=== PATIENT | female | born 1970 | race Caucasian/White ===

== ENCOUNTER 2017-01-25 18:25 | Emergency (ER) | payer OTHER ==
[~2017-01-25] VITALS: Ht 160 cm; Wt 63.6 kg
[~2017-01-25 18:25] MED LIST: ACIDOPHILUS PO; ADVIR; ALBUTEROL0.09 MG/A1 IH; ALBUTEROL0.09 MG/A3 IH; ALBUTEROL0.83 MG/ML IH; ALEVE; ALLEGRA60 MG PO; AMBIEN10 MG PO; AMBIEN5 MG PO; AMERGE; AMITRIPTYLINE25 MG PO; AMOXICILLIN 50500 MG PO; ATARAX; BENADRYL25 M1 PO; BENADRYL25 M2; BENADRYL25 MG PO; BENTYL20 MG PO; CAMBIA; CEFTIN250 M1 PO; CEFTIN250 MG PO; CEFTIN250 MG/5 M PO; CEFTIN500 MG PO; CIPRO 500MG TA500 MG PO; CYMBALTA 60MG60 MG PO; CYMBALTA PO; DARVOCET-N-101 UDTAB PO; DOXAZOCIN; DOXEPIN; DOXEPIN PO; ESTROGEL TOP; FERROUS SU325 MG/TAB PO; FLAGYL500 MG PO; FLEXERIL; FLEXERIL10 MG PO; FLONASE NASAL S16 GM NS; HYDROXYZIN10 MG/5 M1 PO; HYDROXYZINE HCL25 MG PO; IBUPROFEN; IMITREX 6M6 MG/0.5 M SQ; IMITREX25 MG PO; IMITREX25 MG SQ; IMITREX6 MG/0.5 M SC; INDERAL; IRON; LEVAQUIN 250MG250 MG PO; LEVAQUIN 750MG750 MG PO; LORTAB 5/500 501 TAB; LORTAB 5/500 501 TAB PO; LORTAB 7.5/5001 TAB PO; LYRICA150 MG PO; MACROBID 1100 MG/CAP PO; MACRODANTIN PO; MAXALT10 MG PO; MEPERIDINE HCL50 MG PO; METRONIDAZOLE500 MG PO; MOTRIN800 MG PO; NEXIUM 20MG CAP20 MG PO; NEXIUM40 MG PO; NORCO 325 MG-51 TAB; NORCO 325 MG-51 TAB PO; OCUFLOX OPHTH DR5 ML OD; OMNICEF 300MG300 MG PO; PEPCID 20MG TAB20 MG; PEPCID 20MG TAB20 MG PO; PEPCID AC 10MG10 MG PO; PERCOCET 325 MG1 TA2 PO; PERCOCET 5/321 UDTAB PO; PHENERGAN 25 TA25 MG; PHENERGAN 25 TA25 MG PO; PHENERGAN25 MG; PHENERGAN25 MG RC; PHENERGAN25 MG/ML; PREDNISONE 20MG20 MG PO; PREDNISONE20 MG PO; PREMARIN 1.251.25 MG PO; PREVACID 30MG30 M1 PO; PREVPAC; PRILOSEC 20MG20 MG PO; PROCTOFOAM-HC 11 FOA RC; PROMETHAZINE12.5 M5 PO; PROVENTIL0.09 MG/A1 IH; PYRIDIUM 100MG100 MG PO; REGLAN 10MG10 MG/TAB PO; RELPAX20 MG PO; SEPTRA DS 8001 TAB PO; SINGULAIR10 MG PO; STADOL NASA25 MG/BOT NS; TIZANIDINE4 MG PO; TOPAKAX; TOPAMAX200 MG PO; TOPIRAMATE PO; TRAZADONE HYDR100 MG PO; TREXIMET PO; TUSS PO; ULTRAM50 MG PO; VENTOLIN0.09 MG IH; ZANAFLEX; ZANAFLEX 4MG TAB4 MG PO; ZITHROMAX Z PA250 MG PO; ZOLOFT; ZOLOFT 100MG100 MG PO; ZOLOFT100 MG PO; ZYRTEC 10MG PO; same
[2017-01-25 18:33] VITALS: TEMP 98.2
[2017-01-25] MEDS ORDERED: TOPAMAX200 MG PO (18:52)
[2017-01-25] MEDS ORDERED: BUSPAR DIVIDOSE15 MG PO (18:53)
[2017-01-25] MEDS ORDERED: PRIL40 PO (18:53)
[2017-01-25] MEDS ORDERED: INDERAL 10MG10 MG PO (18:53)
[2017-01-25 20:32] VITALS: BP 107/68; PULSE 90
== END 2017-01-25 20:56 | disposition home or self-care (01) ==
LOC: COL.ER 18:25
DX: G43.909 Migraine, unspecified, not intractable, without status migrainosus (principal)
CPT/HCPCS: J1200; J1885; J2060; J2550; J7030

== ENCOUNTER 2017-02-13 16:30 | Emergency (ER) | payer MEDICARE ==
[~2017-02-13] VITALS: Ht 160 cm; Wt 65.9 kg
[~2017-02-13 16:30] MED LIST changes: +BUSPAR DIVIDOSE15 MG PO; +INDERAL 10MG10 MG PO; +PRIL40 PO
[2017-02-13 16:39] VITALS: TEMP 99
[2017-02-13] MEDS ORDERED: ATARAX 25MG25 MG/TAB PO (18:41)
[2017-02-13 18:50] VITALS: BP 122/81; PULSE 85
== END 2017-02-13 18:57 | disposition home or self-care (01) ==
LOC: COL.ER 16:30
DX: R21 Rash and other nonspecific skin eruption (principal); T43.615A Adverse effect of caffeine, initial encounter; G43.909 Migraine, unspecified, not intractable, without status migrainosus; M79.7 Fibromyalgia
CPT/HCPCS: J1100; J1170; J1200; J1885; J2550; J7030

== ENCOUNTER → 2017-03-23 | Outpatient (CLI) | payer MEDICARE ==
[~2017-03-23] MED LIST changes: +ATARAX 25MG25 MG/TAB PO
[2017-03-23 13:25] LABS: TRICYCLIC ANTIDEPRESS URINE NEGATIVE
== END ==
LOC: COL.LAB 12:37
PROVIDERS: Family Medicine
DX: G89.29 Other chronic pain (principal)

== ENCOUNTER 2017-06-18 19:17 | Emergency (ER) | payer MEDICARE ==
[~2017-06-18] VITALS: Ht 160 cm; Wt 72.7 kg
[2017-06-18 19:18] VITALS: BP 113/75; TEMP 97.7
[2017-06-18] MEDS ORDERED: PHENERGAN 25 TA25 MG PO (19:34)
[2017-06-18] MEDS ORDERED: BENADRYL25 M2 PO (19:34)
[2017-06-18] MEDS ORDERED: MOTRIN 800800 MG/TAB PO (19:35)
[2017-06-18 23:39] VITALS: PULSE 71
== END 2017-06-18 23:39 | disposition home or self-care (01) ==
LOC: COL.ER 19:17
DX: G43.909 Migraine, unspecified, not intractable, without status migrainosus (principal); J45.909 Unspecified asthma, uncomplicated; M79.7 Fibromyalgia; Z98.51 Tubal ligation status; Z90.710 Acquired absence of both cervix and uterus
CPT/HCPCS: J1200; J1885; J2300; J2550; J7030

== ENCOUNTER 2017-08-08 12:55 | Emergency (ER) | payer MEDICARE ==
[~2017-08-08] VITALS: Ht 160 cm; Wt 70.5 kg
[~2017-08-08 12:55] MED LIST changes: +BENADRYL25 M2 PO; +MOTRIN 800800 MG/TAB PO
[2017-08-08 12:59] VITALS: BP 114/72; TEMP 98.2
[2017-08-08] MEDS ORDERED: ATARAX 10MG10 MG/TAB PO (13:37)
[2017-08-08] MEDS ORDERED: IMITREX 6M6 MG/0.5 M SQ (13:38)
[2017-08-08] MEDS ORDERED: PERCOCET 325 MG1 TA2 PO (13:39)
[2017-08-08 16:25] VITALS: PULSE 78
== END 2017-08-08 16:30 | disposition home or self-care (01) ==
LOC: COL.ER 12:55
DX: G43.909 Migraine, unspecified, not intractable, without status migrainosus (principal); M79.7 Fibromyalgia; J45.909 Unspecified asthma, uncomplicated; F43.10 Post-traumatic stress disorder, unspecified; Z90.710 Acquired absence of both cervix and uterus; Z90.49 Acquired absence of other specified parts of digestive tract
CPT/HCPCS: J0595; J1200; J1885; J2550; J7030

== ENCOUNTER → 2017-12-07 | Outpatient (CLI) | payer MEDICARE ==
[~2017-12-07] MED LIST changes: +ATARAX 10MG10 MG/TAB PO
== END ==
LOC: COL.RAD 11-30 10:30
DX: M79.7 Fibromyalgia (principal); R90.82 White matter disease, unspecified
CPT/HCPCS: A9585

== ENCOUNTER → 2018-01-24 | Outpatient (CLI) | payer MEDICARE | LOC: COL.RAD 10:22 | DX: R10.9 Unspecified abdominal pain (principal); R11.0 Nausea ==

== ENCOUNTER → 2018-04-25 | Emergency (ER) | payer MEDICARE ==
[~2018-04-25] VITALS: Wt 68.2 kg
[~2018-04-25] MED LIST changes: +AIMOVIG AU70 MG/1 ML SQ; +ATARAX50 MG PO; +BENTYL 20MG20 MG/TAB PO; +DEXILANT60 MG PO; +PAMELOR 25MG25 MG PO; +TENORMIN 2525 MG/TAB PO; +ZANAFLEX CAPSULE2 MG PO
[2018-04-25 23:00] VITALS: BP 116/74; PULSE 102; TEMP 97.8
[2018-04-26 14:36] LABS: ALBUMIN 4.3 gm/dL (3.5-5.0); BILIRUBIN,TOTAL 0.4 mg/dL (0.0-1.0); C-REACTIVE PROTEIN 0.7 mg/dL (0.0-0.9); CALCIUM 9.4 mg/dL (8.4-10.2); CREATININE, serum 0.94 mg/dL (0.52-1.25); POTASSIUM 3.9 mmol/L (3.4-5.0); TOTAL PROTEIN 8.5 gm/dL (6.4-8.2)
[2018-04-26 15:49] LABS: BASO % 0.3 % (0.0-2.0); EOS # 0.3 (0.0-0.7); EOS % 3.6 % (0-4.0); GRAN # 3.5 (1.4-6.5); GRAN % 50.3 % (42.2-75.2); HEMATOCRIT 38.6 % (37.0-47.0); HEMOGLOBIN 12.8 g/dl (12.5-16.0); LYMPH # 2.8 (1.2-3.4); LYMPH % 39.7 % (20.0-51.0); MEAN CELL VOLUME 83 fl (80.0-100.0); MEAN CORPUSCULAR HEMOGLOBIN 28 pg (27.0-31.0); MEAN CORPUSCULAR HGB CONC 33 g/dl (33.0-37.0); MEAN PLATELET VOLUME 11.1 fl (7.4-10.4); MONO # 0.4 (0.1-0.6); MONO % 5.7 % (1.7-9.3); PLATELET COUNT 140 K/mm3 (130-400); RED BLOOD COUNT 4.64 M/mm3 (4.10-5.30); REDCELL DISTRIBUTION WIDTH-CV 13.8 % (11.5-14.5)
== END ==
LOC: COL.ER 23:00
PROVIDERS: Emergency Medicine
DX: R10.13 Epigastric pain (principal); R10.11 Right upper quadrant pain; G43.909 Migraine, unspecified, not intractable, without status migrainosus; Z90.49 Acquired absence of other specified parts of digestive tract; Z90.710 Acquired absence of both cervix and uterus
CPT/HCPCS: J1170; J2550; J7030

== ENCOUNTER 2018-05-02 18:44 | Emergency (ER) | payer MEDICARE ==
[~2018-05-02] VITALS: Ht 160 cm; Wt 72.7 kg
[2018-05-02 18:49] VITALS: TEMP 97.5
[2018-05-02 20:05] LABS: BASO % 0.2 % (0.0-2.0); EOS # 0.2 (0.0-0.7); EOS % 2.7 % (0-4.0); GRAN % 47.1 % (42.2-75.2); HEMATOCRIT 37.5 % (37.0-47.0); HEMOGLOBIN 12.4 g/dl (12.5-16.0); LYMPH # 3.6 (1.2-3.4); LYMPH % 42.2 % (20.0-51.0); MEAN CELL VOLUME 83 fl (80.0-100.0); MEAN CORPUSCULAR HEMOGLOBIN 27 pg (27.0-31.0); MEAN CORPUSCULAR HGB CONC 33 g/dl (33.0-37.0); MONO # 0.6 (0.1-0.6); MONO % 7.2 % (1.7-9.3); PLATELET COUNT 238 K/mm3 (130-400); RED BLOOD COUNT 4.54 M/mm3 (4.10-5.30); REDCELL DISTRIBUTION WIDTH-CV 14.5 % (11.5-14.5)
[2018-05-02 20:16] LABS: BILIRUBIN,TOTAL 0.2 mg/dL (0.0-1.0); C-REACTIVE PROTEIN 0.6 mg/dL (0.0-0.9); CALCIUM 8.8 mg/dL (8.4-10.2); CREATININE, serum 0.98 mg/dL (0.52-1.25); POTASSIUM 3.9 mmol/L (3.4-5.0); TOTAL PROTEIN 7.7 gm/dL (6.4-8.2)
[2018-05-02 20:49] LABS: COLLECTION METHOD CLEAN CATCH
[2018-05-02 21:01] LABS: PH 7 (5-8); SQUAMOUS EPITHELIAL 0-2 /hpf; URINE APPEARANCE Clear; URINE BACTERIA None Seen /hpf; URINE BILIRUBIN Negative (NEGATIVE); URINE BLOOD Negative (NEGATIVE); URINE COLOR Straw; URINE GLUCOSE Negative (NEGATIVE); URINE KETONE Negative (NEGATIVE); URINE LEUKOCYTE ESTERASE Trace (NEGATIVE); URINE NITRATE Negative (NEGATIVE); URINE PROTEIN(semi-quant) Negative (NEGATIVE); URINE RBC 0-2 /hpf; URINE UROBILINOGEN Negative (NEGATIVE)
[2018-05-02 22:29] VITALS: BP 91/68; PULSE 98
== END 2018-05-02 22:29 | disposition home or self-care (01) ==
LOC: COL.ER 18:44
PROVIDERS: Emergency Medicine
DX: R10.11 Right upper quadrant pain (principal); G89.29 Other chronic pain; G43.909 Migraine, unspecified, not intractable, without status migrainosus; M79.7 Fibromyalgia; Z90.49 Acquired absence of other specified parts of digestive tract; Z90.710 Acquired absence of both cervix and uterus; Z88.8 Allergy status to other drugs, medicaments and biological substances
CPT/HCPCS: J1200; J1630; J2270; J2550; J7030; Q9967

== ENCOUNTER 2018-06-19 12:45 | Emergency (ER) | payer MEDICARE ==
[~2018-06-19] VITALS: Ht 160 cm; Wt 72.7 kg
[2018-06-19 13:02] VITALS: TEMP 97.8
[2018-06-19 15:05] LABS: COLLECTION METHOD CLEAN CATCH
[2018-06-19 15:11] LABS: BASO % 0.3 % (0.0-2.0); EOS # 0.2 (0.0-0.7); EOS % 2.8 % (0-4.0); GRAN # 3.8 (1.4-6.5); GRAN % 52.8 % (42.2-75.2); HEMATOCRIT 38.7 % (37.0-47.0); HEMOGLOBIN 12.7 g/dl (12.5-16.0); LYMPH # 2.8 (1.2-3.4); LYMPH % 38.5 % (20.0-51.0); MEAN CELL VOLUME 84 fl (80.0-100.0); MEAN CORPUSCULAR HEMOGLOBIN 28 pg (27.0-31.0); MEAN CORPUSCULAR HGB CONC 33 g/dl (33.0-37.0); MONO # 0.4 (0.1-0.6); MONO % 4.9 % (1.7-9.3); PLATELET COUNT 255 K/mm3 (130-400); RED BLOOD COUNT 4.62 M/mm3 (4.10-5.30); REDCELL DISTRIBUTION WIDTH-CV 14.1 % (11.5-14.5)
[2018-06-19 15:13] LABS: PH 6 (5-8); SQUAMOUS EPITHELIAL 0-2 /hpf; URINE APPEARANCE Clear; URINE BACTERIA Rare /hpf; URINE BILIRUBIN Negative (NEGATIVE); URINE BLOOD Negative (NEGATIVE); URINE COLOR Straw; URINE GLUCOSE Negative (NEGATIVE); URINE KETONE Negative (NEGATIVE); URINE LEUKOCYTE ESTERASE 2+ (NEGATIVE); URINE NITRATE Negative (NEGATIVE); URINE PROTEIN(semi-quant) Negative (NEGATIVE); URINE RBC 0-2 /hpf; URINE UROBILINOGEN Negative (NEGATIVE)
[2018-06-19 15:21] LABS: ALANINE AMINOTRANSFERASE < 6 U/L (9-52); ALBUMIN 4.3 gm/dL (3.5-5.0); ALKALINE PHOSPHATASE 152 U/L (50-136); ANION GAP 7 mmol/L (7-16); AST,SGOT 18 U/L (15-37); BILIRUBIN,TOTAL 0.3 mg/dL (0.0-1.0); BLOOD UREA NITROGEN 15 mg/dL (7-17); C-REACTIVE PROTEIN 0.6 mg/dL (0.0-0.9); CALCIUM 9.5 mg/dL (8.4-10.2); CARBON DIOXIDE 23 mmol/L (22-30); CHLORIDE 112 mmol/L (98-107); CREATININE, serum 1.02 (0.52-1.25); GLUCOSE 85 mg/dL (74-106); LIPASE 97 U/L (23-300); POTASSIUM 4.1 mmol/L (3.4-5.0); SODIUM 141 mmol/L (137-145); TOTAL PROTEIN 8.4 gm/dL (6.4-8.2)
[2018-06-19 15:35] LABS: TROPONIN-I < 0.012 ng/mL (0.000-0.035)
[2018-06-19 17:58] VITALS: BP 114/82; PULSE 87
== END 2018-06-19 18:09 | disposition home or self-care (01) ==
LOC: COL.ER 12:45
PROVIDERS: Nurse Practitioner
DX: R07.89 Other chest pain (principal); R10.10 Upper abdominal pain, unspecified; J45.909 Unspecified asthma, uncomplicated; M79.7 Fibromyalgia; F43.10 Post-traumatic stress disorder, unspecified; G43.909 Migraine, unspecified, not intractable, without status migrainosus; Z90.89 Acquired absence of other organs; Z90.49 Acquired absence of other specified parts of digestive tract; Z90.710 Acquired absence of both cervix and uterus
CPT/HCPCS: J1170; J1200; J2300; J2550; J7030

== ENCOUNTER 2018-07-05 17:12 | Emergency (ER) | payer MEDICARE ==
[~2018-07-05] VITALS: Ht 160 cm; Wt 72.7 kg
[2018-07-05 17:13] VITALS: TEMP 98.1
[2018-07-05 19:08] LABS: BASO % 0.4 % (0.0-2.0); EOS # 0.3 (0.0-0.7); EOS % 3.4 % (0-4.0); GRAN # 3.6 (1.4-6.5); GRAN % 44.7 % (42.2-75.2); HEMATOCRIT 37.2 % (37.0-47.0); HEMOGLOBIN 12.3 g/dl (12.5-16.0); LYMPH # 3.6 (1.2-3.4); LYMPH % 44.8 % (20.0-51.0); MEAN CELL VOLUME 84 fl (80.0-100.0); MEAN CORPUSCULAR HEMOGLOBIN 28 pg (27.0-31.0); MEAN CORPUSCULAR HGB CONC 33 g/dl (33.0-37.0); MEAN PLATELET VOLUME 10.5 fl (7.4-10.4); MONO # 0.5 (0.1-0.6); MONO % 6.2 % (1.7-9.3); PLATELET COUNT 191 K/mm3 (130-400); RED BLOOD COUNT 4.44 M/mm3 (4.10-5.30); REDCELL DISTRIBUTION WIDTH-CV 14.1 % (11.5-14.5)
[2018-07-05 19:27] LABS: ALANINE AMINOTRANSFERASE 14 U/L (9-52); ALBUMIN 3.9 gm/dL (3.5-5.0); ALKALINE PHOSPHATASE 147 U/L (50-136); ANION GAP 11 mmol/L (7-16); AST,SGOT 16 U/L (15-37); BILIRUBIN,TOTAL 0.1 mg/dL (0.0-1.0); BLOOD UREA NITROGEN 16 mg/dL (7-17); CALCIUM 9.3 mg/dL (8.4-10.2); CARBON DIOXIDE 23 mmol/L (22-30); CHLORIDE 110 mmol/L (98-107); CREATININE, serum 0.97 (0.52-1.25); GLUCOSE 84 mg/dL (74-106); LIPASE 176 U/L (23-300); POTASSIUM 3.7 mmol/L (3.4-5.0); SODIUM 144 mmol/L (137-145); TOTAL PROTEIN 7.4 gm/dL (6.4-8.2)
[2018-07-05 19:38] LABS: TROPONIN-I < 0.012 ng/mL (0.000-0.035)
[2018-07-05 22:23] VITALS: BP 101/76; PULSE 88
== END 2018-07-05 22:25 | disposition home or self-care (01) ==
LOC: COL.ER 17:12
PROVIDERS: Emergency Medicine
DX: S46.912A Strain of unspecified muscle, fascia and tendon at shoulder and upper arm level, left arm, initial encounter (principal); G43.909 Migraine, unspecified, not intractable, without status migrainosus; R07.89 Other chest pain; G89.29 Other chronic pain; R10.9 Unspecified abdominal pain; K58.9 Irritable bowel syndrome, unspecified; M79.7 Fibromyalgia; Z90.49 Acquired absence of other specified parts of digestive tract; X58.XXXA Exposure to other specified factors, initial encounter
CPT/HCPCS: J1200; J1885; J2300; J2550; J7030

== ENCOUNTER 2018-07-29 16:04 | Emergency (ER) | payer MEDICARE ==
[~2018-07-29] VITALS: Ht 160 cm; Wt 73.6 kg
[2018-07-29 16:48] VITALS: TEMP 98.1
[2018-07-29 17:37] LABS: BASO % 0.4 % (0.0-2.0); EOS # 0.3 (0.0-0.7); EOS % 3.8 % (0-4.0); GRAN # 3.7 (1.4-6.5); GRAN % 49.1 % (42.2-75.2); HEMATOCRIT 37.5 % (37.0-47.0); HEMOGLOBIN 12.4 g/dl (12.5-16.0); LYMPH # 2.9 (1.2-3.4); LYMPH % 39.5 % (20.0-51.0); MEAN CELL VOLUME 83 fl (80.0-100.0); MEAN CORPUSCULAR HEMOGLOBIN 27 pg (27.0-31.0); MEAN CORPUSCULAR HGB CONC 33 g/dl (33.0-37.0); MEAN PLATELET VOLUME 10.1 fl (7.4-10.4); MONO # 0.5 (0.1-0.6); MONO % 6.7 % (1.7-9.3); PLATELET COUNT 255 K/mm3 (130-400); RED BLOOD COUNT 4.54 M/mm3 (4.10-5.30); REDCELL DISTRIBUTION WIDTH-CV 13.4 % (11.5-14.5)
[2018-07-29 17:40] LABS: ALANINE AMINOTRANSFERASE < 6 U/L (9-52); ALKALINE PHOSPHATASE 133 U/L (50-136); ANION GAP 12 mmol/L (7-16); AST,SGOT 17 U/L (15-37); BILIRUBIN,TOTAL 0.3 mg/dL (0.0-1.0); BLOOD UREA NITROGEN 14 mg/dL (7-17); C-REACTIVE PROTEIN 0.8 mg/dL (0.0-0.9); CALCIUM 9.6 mg/dL (8.4-10.2); CARBON DIOXIDE 21 mmol/L (22-30); CHLORIDE 110 mmol/L (98-107); CREATININE, serum 1.02 (0.52-1.25); GLUCOSE 96 mg/dL (74-106); LIPASE 180 U/L (23-300); POTASSIUM 3.5 mmol/L (3.4-5.0); SODIUM 143 mmol/L (137-145); TOTAL PROTEIN 7.8 gm/dL (6.4-8.2)
[2018-07-29] MEDS ORDERED: FLONASE NASAL S16 GM NS (17:40)
[2018-07-29] MEDS ORDERED: BENTYL 20MG20 MG/TAB PO (17:40)
[2018-07-29] MEDS ORDERED: BUSPAR 30MG30 MG/TAB PO (17:40)
[2018-07-29] MEDS ORDERED: PHENERGAN 25 TA25 MG PO (17:43)
[2018-07-29 18:00] LABS: TROPONIN-I < 0.012 ng/mL (0.000-0.035)
[2018-07-29 18:53] VITALS: BP 103/82; PULSE 82
== END 2018-07-29 18:54 | disposition home or self-care (01) ==
LOC: COL.ER 16:04
PROVIDERS: Emergency Medicine
DX: R07.89 Other chest pain (principal); I10 Essential (primary) hypertension; M79.7 Fibromyalgia; F41.9 Anxiety disorder, unspecified; F32.9 Major depressive disorder, single episode, unspecified; G43.909 Migraine, unspecified, not intractable, without status migrainosus
CPT/HCPCS: J2550; J3010

== ENCOUNTER 2018-09-09 16:30 | Emergency (ER) | payer MEDICARE ==
[~2018-09-09] VITALS: Ht 160 cm; Wt 75.0 kg
[~2018-09-09 16:30] MED LIST changes: +BUSPAR 30MG30 MG/TAB PO
[2018-09-09 16:46] VITALS: TEMP 98.6
[2018-09-09 22:06] VITALS: BP 109/80; PULSE 97
== END 2018-09-09 22:06 | disposition home or self-care (01) ==
LOC: COL.ER 16:30
DX: G43.909 Migraine, unspecified, not intractable, without status migrainosus (principal); J45.909 Unspecified asthma, uncomplicated; M79.7 Fibromyalgia; Z90.710 Acquired absence of both cervix and uterus; Z79.51 Long term (current) use of inhaled steroids
CPT/HCPCS: J0595; J1100; J1170; J1200; J2550; J3010; J7030

== ENCOUNTER 2018-12-14 12:46 | Emergency (ER) | payer MEDICARE ==
[~2018-12-14] VITALS: Ht 160 cm; Wt 74.1 kg
[2018-12-14 12:53] VITALS: TEMP 98.3
[2018-12-14 13:38] LABS: BASO % 0.5 % (0.0-2.0); EOS # 0.2 (0.0-0.7); EOS % 3.2 % (0-4.0); GRAN # 3.1 (1.4-6.5); GRAN % 46.5 % (42.2-75.2); HEMATOCRIT 39.2 % (37.0-47.0); HEMOGLOBIN 12.7 g/dl (12.5-16.0); LYMPH # 2.9 (1.2-3.4); LYMPH % 43.5 % (20.0-51.0); MEAN CELL VOLUME 84 fl (80.0-100.0); MEAN CORPUSCULAR HEMOGLOBIN 27 pg (27.0-31.0); MEAN CORPUSCULAR HGB CONC 32 g/dl (33.0-37.0); MEAN PLATELET VOLUME 10.2 fl (7.4-10.4); MONO # 0.4 (0.1-0.6); MONO % 5.8 % (1.7-9.3); PLATELET COUNT 257 K/mm3 (130-400); RED BLOOD COUNT 4.69 M/mm3 (4.10-5.30); REDCELL DISTRIBUTION WIDTH-CV 14.6 % (11.5-14.5)
[2018-12-14 13:52] LABS: ALBUMIN 4.3 gm/dL (3.5-5.0); BILIRUBIN,TOTAL 0.2 mg/dL (0.0-1.0); C-REACTIVE PROTEIN 0.7 mg/dL (0.0-0.9); CALCIUM 9.5 mg/dL (8.4-10.2); CREATININE, serum 1.08 (0.52-1.25); POTASSIUM 4.1 mmol/L (3.4-5.0); TOTAL PROTEIN 8.1 gm/dL (6.4-8.2)
[2018-12-14 15:53] LABS: COLLECTION METHOD CLEAN CATCH
[2018-12-14 16:21] LABS: MUCOUS Present /lpf; PH 5 (5-8); SQUAMOUS EPITHELIAL 0-2 /hpf; URINE APPEARANCE Clear; URINE BACTERIA Rare /hpf; URINE BILIRUBIN Negative (NEGATIVE); URINE BLOOD Negative (NEGATIVE); URINE COLOR Yellow; URINE GLUCOSE Negative (NEGATIVE); URINE KETONE Negative (NEGATIVE); URINE LEUKOCYTE ESTERASE Negative (NEGATIVE); URINE NITRATE Negative (NEGATIVE); URINE PROTEIN(semi-quant) Negative (NEGATIVE); URINE RBC 0-2 /hpf; URINE UROBILINOGEN Negative (NEGATIVE)
[2018-12-14 17:30] VITALS: BP 109/82; PULSE 76
== END 2018-12-14 17:33 | disposition home or self-care (01) ==
LOC: COL.ER 12:46
PROVIDERS: Family Medicine
DX: G40.909 Epilepsy, unspecified, not intractable, without status epilepticus (principal); R10.11 Right upper quadrant pain; Z90.89 Acquired absence of other organs; Z79.51 Long term (current) use of inhaled steroids
CPT/HCPCS: J0595; J1200; J1630; J1885; J2550; J7030

== ENCOUNTER 2019-01-05 15:22 | Emergency (ER) | payer MEDICARE ==
[~2019-01-05] VITALS: Ht 160 cm; Wt 72.7 kg
[2019-01-05 15:45] VITALS: BP 106/71; TEMP 97.7
[2019-01-05 19:32] VITALS: PULSE 99
== END 2019-01-05 19:32 | disposition home or self-care (01) ==
LOC: COL.ER 15:22
DX: G43.909 Migraine, unspecified, not intractable, without status migrainosus (principal); M79.7 Fibromyalgia; Z79.51 Long term (current) use of inhaled steroids
CPT/HCPCS: J0595; J1200; J1630; J1885; J2550; J7030

== ENCOUNTER 2019-02-10 17:37 | Emergency (ER) | payer MEDICARE ==
[~2019-02-10] VITALS: Ht 160 cm; Wt 72.7 kg
[2019-02-10 17:53] VITALS: BP 112/72; TEMP 99.7
[2019-02-10 23:23] LABS: BASO % 0.3 % (0.0-2.0); EOS # 0.2 (0.0-0.7); EOS % 2.4 % (0-4.0); GRAN % 51.9 % (42.2-75.2); HEMATOCRIT 37.6 % (37.0-47.0); HEMOGLOBIN 12.3 g/dl (12.5-16.0); LYMPH # 3.8 (1.2-3.4); LYMPH % 39.1 % (20.0-51.0); MEAN CELL VOLUME 82 fl (80.0-100.0); MEAN CORPUSCULAR HEMOGLOBIN 27 pg (27.0-31.0); MEAN CORPUSCULAR HGB CONC 33 g/dl (33.0-37.0); MEAN PLATELET VOLUME 9.7 fl (7.4-10.4); MONO # 0.5 (0.1-0.6); MONO % 5.6 % (1.7-9.3); PLATELET COUNT 252 K/mm3 (130-400); RED BLOOD COUNT 4.58 M/mm3 (4.10-5.30); REDCELL DISTRIBUTION WIDTH-CV 14.6 % (11.5-14.5)
[2019-02-10 23:36] LABS: BILIRUBIN,TOTAL 0.1 mg/dL (0.0-1.0); C-REACTIVE PROTEIN 2.3 mg/dL (0.0-0.9); CALCIUM 9.1 mg/dL (8.4-10.2); CREATININE, serum 0.98 (0.52-1.25); POTASSIUM 3.4 mmol/L (3.4-5.0)
[2019-02-10 23:48] LABS: COLLECTION METHOD CLEAN CATCH
[2019-02-10 23:54] LABS: PH 6 (5-8); SQUAMOUS EPITHELIAL 0-2 /hpf; URINE APPEARANCE Clear; URINE BACTERIA None Seen /hpf; URINE BILIRUBIN Negative (NEGATIVE); URINE BLOOD Negative (NEGATIVE); URINE COLOR Straw; URINE GLUCOSE Negative (NEGATIVE); URINE KETONE Negative (NEGATIVE); URINE LEUKOCYTE ESTERASE Trace (NEGATIVE); URINE NITRATE Negative (NEGATIVE); URINE PROTEIN(semi-quant) Negative (NEGATIVE); URINE RBC 0-2 /hpf; URINE UROBILINOGEN Negative (NEGATIVE)
[2019-02-11 00:22] LABS: STREP SCREEN NEGATIVE
[2019-02-11 02:35] VITALS: PULSE 101
== END 2019-02-11 02:35 | disposition home or self-care (01) ==
LOC: COL.ER 17:37
PROVIDERS: Physician Assistant
DX: R51 Headache (principal); R10.9 Unspecified abdominal pain; R53.81 Other malaise; J45.909 Unspecified asthma, uncomplicated; M79.7 Fibromyalgia; Z87.19 Personal history of other diseases of the digestive system; Z79.51 Long term (current) use of inhaled steroids
CPT/HCPCS: J1170; J1200; J1885; J2270; J2550; Q9967

== ENCOUNTER 2019-03-04 13:46 | Emergency (ER) | payer MEDICARE ==
[~2019-03-04] VITALS: Ht 160 cm; Wt 74.1 kg
[2019-03-04 13:51] VITALS: TEMP 97.6
[2019-03-04] MEDS ORDERED: OMNICEF 300MG300 MG PO (15:23)
[2019-03-04 15:44] VITALS: BP 105/70; PULSE 87
== END 2019-03-04 15:53 | disposition home or self-care (01) ==
LOC: COL.ER 13:46
DX: J01.90 Acute sinusitis, unspecified (principal); G43.909 Migraine, unspecified, not intractable, without status migrainosus; J45.909 Unspecified asthma, uncomplicated; M79.7 Fibromyalgia; Z79.51 Long term (current) use of inhaled steroids
CPT/HCPCS: J0595; J1200; J1630; J1885; J2550; J7030

== ENCOUNTER 2019-04-15 15:53 | Emergency (ER) | payer MEDICARE ==
[~2019-04-15] VITALS: Ht 160 cm; Wt 72.7 kg
[2019-04-15] MEDS ORDERED: PREDNISONE20 MG PO (19:39)
[2019-04-15 19:55] VITALS: BP 101/69; PULSE 89; TEMP 98.4
== END 2019-04-15 19:55 | disposition home or self-care (01) ==
LOC: COL.ER 15:53
DX: G43.909 Migraine, unspecified, not intractable, without status migrainosus (principal); J10.1 Influenza due to other identified influenza virus with other respiratory manifestations; F43.10 Post-traumatic stress disorder, unspecified; J45.901 Unspecified asthma with (acute) exacerbation; Z98.51 Tubal ligation status; Z79.51 Long term (current) use of inhaled steroids
CPT/HCPCS: J0595; J1200; J1885; J2550; J7030

== ENCOUNTER → 2019-07-08 | Outpatient (CLI) | payer MEDICARE | LOC: COL.RAD 08:28 | DX: N20.0 Calculus of kidney (principal) ==

== ENCOUNTER 2019-11-12 13:56 | Emergency (ER) | payer MEDICARE, MEDICAID ==
[~2019-11-12] VITALS: Ht 160 cm; Wt 72.7 kg
[2019-11-12 14:06] VITALS: TEMP 98.2
[2019-11-12 16:36] VITALS: BP 107/77; PULSE 83
== END 2019-11-12 16:51 | disposition home or self-care (01) ==
LOC: COL.ER 13:56
DX: G43.909 Migraine, unspecified, not intractable, without status migrainosus (principal); J45.909 Unspecified asthma, uncomplicated; M79.7 Fibromyalgia; Z90.49 Acquired absence of other specified parts of digestive tract; Z79.51 Long term (current) use of inhaled steroids; Z79.52 Long term (current) use of systemic steroids
CPT/HCPCS: J1170; J1200; J1630; J1885; J2550; J7030

== ENCOUNTER 2019-11-20 11:51 | Emergency (ER) | payer MEDICARE, MEDICAID ==
[~2019-11-20] VITALS: Ht 160 cm; Wt 72.7 kg
[2019-11-20 12:02] VITALS: TEMP 97.8
[2019-11-20] MEDS ORDERED: PREDNISONE20 MG PO (15:09)
[2019-11-20] MEDS ORDERED: NORCO 325 MG-51 TAB PO (15:09)
[2019-11-20 15:10] VITALS: BP 118/68; PULSE 76
== END 2019-11-20 15:10 | disposition home or self-care (01) ==
LOC: COL.ER 11:51
DX: G43.909 Migraine, unspecified, not intractable, without status migrainosus (principal); Z90.49 Acquired absence of other specified parts of digestive tract
CPT/HCPCS: J0595; J1170; J1200; J2550

== ENCOUNTER 2020-05-16 19:50 | Emergency (ER) | payer MEDICARE, MEDICAID ==
[~2020-05-16] VITALS: Ht 160 cm; Wt 72.7 kg
[2020-05-16 20:05] VITALS: TEMP 97.3
[2020-05-16 20:44] LABS: ALANINE AMINOTRANSFERASE 11 U/L (4-34); ALBUMIN 4.3 gm/dL (3.5-5.0); ALKALINE PHOSPHATASE 126 U/L (50-136); ANION GAP 13 mmol/L (7-16); AST,SGOT 22 U/L (15-37); BILIRUBIN,TOTAL < 0.1 mg/dL (0.0-1.0); BLOOD UREA NITROGEN 16 mg/dL (7-17); C-REACTIVE PROTEIN 1.8 mg/dL (0.0-0.9); CALCIUM 9.4 mg/dL (8.4-10.2); CARBON DIOXIDE 20 mmol/L (22-30); CHLORIDE 107 mmol/L (98-107); GLUCOSE 92 mg/dL (74-106); LIPASE 134 U/L (23-300); POTASSIUM 3.6 mmol/L (3.4-5.0); SODIUM 141 mmol/L (137-145); TOTAL PROTEIN 8.8 gm/dL (6.4-8.2)
[2020-05-16 20:45] LABS: BASO % 0.3 % (0.0-2.0); EOS # 0.2 (0.0-0.7); EOS % 2.1 % (0-4.0); GRAN # 3.8 (1.4-6.5); GRAN % 50.5 % (42.2-75.2); HEMATOCRIT 39.9 % (37.0-47.0); HEMOGLOBIN 12.9 g/dl (12.5-16.0); LYMPH % 39.9 % (20.0-51.0); MEAN CELL VOLUME 83 fl (80.0-100.0); MEAN CORPUSCULAR HEMOGLOBIN 27 pg (27.0-31.0); MEAN CORPUSCULAR HGB CONC 32 g/dl (33.0-37.0); MEAN PLATELET VOLUME 10.3 fl (7.4-10.4); MONO # 0.5 (0.1-0.6); MONO % 6.3 % (1.7-9.3); PLATELET COUNT 251 K/mm3 (130-400); RED BLOOD COUNT 4.79 M/mm3 (4.10-5.30); REDCELL DISTRIBUTION WIDTH-CV 14.6 % (11.5-14.5)
[2020-05-16 20:56] LABS: COLLECTION METHOD CLEAN CATCH
[2020-05-16 21:12] LABS: MUCOUS Present /lpf; PH 6 (5-8); SQUAMOUS EPITHELIAL 0-2 /hpf; URINE APPEARANCE Clear; URINE BACTERIA None Seen /hpf; URINE BILIRUBIN Negative (NEGATIVE); URINE BLOOD Negative (NEGATIVE); URINE COLOR Yellow; URINE GLUCOSE Negative (NEGATIVE); URINE KETONE Negative (NEGATIVE); URINE LEUKOCYTE ESTERASE Negative (NEGATIVE); URINE NITRATE Negative (NEGATIVE); URINE PROTEIN(semi-quant) Negative (NEGATIVE); URINE RBC 0-2 /hpf; URINE UROBILINOGEN Negative (NEGATIVE)
[2020-05-16 22:46] VITALS: BP 130/80; PULSE 98
== END 2020-05-16 23:05 | disposition home or self-care (01) ==
LOC: COL.ER 19:50
PROVIDERS: Nurse Practitioner Primary Care
DX: R51.9 Headache, unspecified (principal); R10.13 Epigastric pain; K21.9 Gastro-esophageal reflux disease without esophagitis; J45.909 Unspecified asthma, uncomplicated; M79.7 Fibromyalgia; Z88.8 Allergy status to other drugs, medicaments and biological substances; Z79.51 Long term (current) use of inhaled steroids; Z87.19 Personal history of other diseases of the digestive system
CPT/HCPCS: J0595; J1200; J1885; J2550; J7030; Q9967

== ENCOUNTER 2020-06-04 17:23 | Emergency (ER) | payer MEDICARE, MEDICAID ==
[~2020-06-04] VITALS: Ht 160 cm; Wt 72.7 kg
[2020-06-04 17:58] VITALS: BP 129/94; TEMP 97
[2020-06-04 18:42] LABS: COLLECTION METHOD CLEAN CATCH
[2020-06-04 18:47] LABS: BASO % 0.4 % (0.0-2.0); EOS # 0.1 (0.0-0.7); EOS % 1.4 % (0-4.0); GRAN # 3.9 (1.4-6.5); GRAN % 49.4 % (42.2-75.2); HEMATOCRIT 38.4 % (37.0-47.0); HEMOGLOBIN 12.3 g/dl (12.5-16.0); LYMPH # 3.3 (1.2-3.4); LYMPH % 41.5 % (20.0-51.0); MEAN CELL VOLUME 83 fl (80.0-100.0); MEAN CORPUSCULAR HEMOGLOBIN 27 pg (27.0-31.0); MEAN CORPUSCULAR HGB CONC 32 g/dl (33.0-37.0); MONO # 0.5 (0.1-0.6); MONO % 6.8 % (1.7-9.3); PLATELET COUNT 260 K/mm3 (130-400); RED BLOOD COUNT 4.61 M/mm3 (4.10-5.30); REDCELL DISTRIBUTION WIDTH-CV 14.9 % (11.5-14.5)
[2020-06-04 19:04] LABS: PH 6 (5-8); SQUAMOUS EPITHELIAL 0-2 /hpf; URINE APPEARANCE Clear; URINE BACTERIA None Seen /hpf; URINE BILIRUBIN Negative (NEGATIVE); URINE BLOOD Negative (NEGATIVE); URINE COLOR Straw; URINE GLUCOSE Negative (NEGATIVE); URINE KETONE Negative (NEGATIVE); URINE LEUKOCYTE ESTERASE 1+ (NEGATIVE); URINE NITRATE Negative (NEGATIVE); URINE PROTEIN(semi-quant) Negative (NEGATIVE); URINE RBC 0-2 /hpf; URINE UROBILINOGEN Negative (NEGATIVE)
[2020-06-04 19:08] LABS: ALANINE AMINOTRANSFERASE 14 U/L (4-34); ALBUMIN 4.2 gm/dL (3.5-5.0); ALKALINE PHOSPHATASE 162 U/L (50-136); ANION GAP 11 mmol/L (7-16); AST,SGOT 24 U/L (15-37); BILIRUBIN,TOTAL < 0.1 mg/dL (0.0-1.0); BLOOD UREA NITROGEN 20 mg/dL (7-17); CARBON DIOXIDE 19 mmol/L (22-30); CHLORIDE 110 mmol/L (98-107); CREATININE, serum 0.96 (0.52-1.25); GLUCOSE 90 mg/dL (74-106); LIPASE 218 U/L (23-300); POTASSIUM 3.6 mmol/L (3.4-5.0); SODIUM 140 mmol/L (137-145); TOTAL PROTEIN 8.2 gm/dL (6.4-8.2)
[2020-06-04 19:14] LABS: C-REACTIVE PROTEIN < 0.5 mg/dL (0.0-0.9)
[2020-06-04] MEDS ORDERED: CARAFATE 1GM1 G PO (19:54)
[2020-06-04 20:27] VITALS: PULSE 96
== END 2020-06-04 20:32 | disposition home or self-care (01) ==
LOC: COL.ER 17:23
PROVIDERS: Nurse Practitioner
DX: R10.13 Epigastric pain (principal); R11.0 Nausea; R30.0 Dysuria; R51.9 Headache, unspecified; J45.909 Unspecified asthma, uncomplicated; Z90.710 Acquired absence of both cervix and uterus; Z88.8 Allergy status to other drugs, medicaments and biological substances; Z86.69 Personal history of other diseases of the nervous system and sense organs; Z79.52 Long term (current) use of systemic steroids
CPT/HCPCS: J0595; J1200; J2550; J7030

== ENCOUNTER 2020-06-17 16:28 | Emergency (ER) | payer MEDICARE, MEDICAID ==
[~2020-06-17 16:28] MED LIST changes: +CARAFATE 1GM1 G PO
[2020-06-17 16:40] VITALS: BP 117/79; PULSE 99; TEMP 98.6
[2020-06-17 17:48] LABS: BASO % 0.4 % (0.0-2.0); EOS # 0.1 (0.0-0.7); EOS % 2.1 % (0-4.0); GRAN # 3.1 (1.4-6.5); HEMATOCRIT 38.8 % (37.0-47.0); HEMOGLOBIN 12.5 g/dl (12.5-16.0); MEAN CELL VOLUME 85 fl (80.0-100.0); MEAN CORPUSCULAR HEMOGLOBIN 27 pg (27.0-31.0); MEAN CORPUSCULAR HGB CONC 32 g/dl (33.0-37.0); MEAN PLATELET VOLUME 10.4 fl (7.4-10.4); MONO # 0.5 (0.1-0.6); MONO % 6.8 % (1.7-9.3); PLATELET COUNT 241 K/mm3 (130-400); RED BLOOD COUNT 4.59 M/mm3 (4.10-5.30); REDCELL DISTRIBUTION WIDTH-CV 14.7 % (11.5-14.5)
[2020-06-17 17:57] LABS: ALANINE AMINOTRANSFERASE 11 U/L (4-34); ALBUMIN 3.8 gm/dL (3.5-5.0); ALKALINE PHOSPHATASE 143 U/L (50-136); ANION GAP 7 mmol/L (7-16); AST,SGOT 16 U/L (15-37); BILIRUBIN,TOTAL < 0.1 mg/dL (0.0-1.0); BLOOD UREA NITROGEN 14 mg/dL (7-17); CARBON DIOXIDE 24 mmol/L (22-30); CHLORIDE 110 mmol/L (98-107); CREATININE, serum 1.06 (0.52-1.25); GLUCOSE 95 mg/dL (74-106); POTASSIUM 3.6 mmol/L (3.4-5.0); SODIUM 140 mmol/L (137-145); TOTAL PROTEIN 7.5 gm/dL (6.4-8.2)
== END 2020-06-17 19:00 | disposition home or self-care (01) ==
LOC: COL.ER 16:28
PROVIDERS: Physician Assistant
DX: R51.9 Headache, unspecified (principal); R10.13 Epigastric pain; G89.29 Other chronic pain; M79.7 Fibromyalgia; Z86.16 Personal history of COVID-19; Z88.8 Allergy status to other drugs, medicaments and biological substances; Z79.52 Long term (current) use of systemic steroids
CPT/HCPCS: J1200; J1885; J2550; J7040

== ENCOUNTER → 2020-12-22 | Outpatient (CLI) | payer MEDICARE, MEDICAID | LOC: MC.RAD 14:00 | DX: N63.20 Unspecified lump in the left breast, unspecified quadrant (principal) ==

== ENCOUNTER 2021-03-15 13:16 | Emergency (ER) | payer MEDICARE, MEDICAID ==
[~2021-03-15] VITALS: Ht 160 cm; Wt 65.9 kg
[2021-03-15 14:45] LABS: BASO # 0.1 K/mm3 (0.0-0.2); BASO % 0.7 % (0.0-2.0); EOS # 0.5 K/mm3 (0.0-0.7); EOS % 7.1 % (0.0-4.0); GRAN # 2.6 K/mm3 (1.4-6.5); GRAN % 34.6 % (42.2-75.2); HEMATOCRIT 42.1 % (37.0-47.0); HEMOGLOBIN 13.5 g/dl (12.5-16.0); LYMPH # 3.8 K/mm3 (1.2-3.4); LYMPH % 50.8 % (20.0-51.0); MEAN CELL VOLUME 85 fl (80.0-100.0); MEAN CORPUSCULAR HEMOGLOBIN 27 pg (27-31); MEAN CORPUSCULAR HGB CONC 32 g/dl (33.0-37.0); MEAN PLATELET VOLUME 10.9 fl (7.4-10.4); MONO # 0.5 K/mm3 (0.1-0.6); PLATELET COUNT 260 K/mm3 (130-400); RED BLOOD COUNT 4.98 M/mm3 (4.10-5.30); REDCELL DISTRIBUTION WIDTH-CV 15.7 % (11.5-14.5)
[2021-03-15 15:07] LABS: ALBUMIN 3.8 gm/dL (3.5-5.0); BILIRUBIN,TOTAL 0.2 mg/dL (0.2-1.2); CALCIUM 8.6 mg/dL (8.4-10.2); CREATININE, serum 0.98 mg/dL (0.57-1.11)
[2021-03-15 16:58] LABS: COLLECTION METHOD CLEAN CATCH
[2021-03-15 17:05] LABS: PH 7 (5-8); SQUAMOUS EPITHELIAL 0-2 /hpf (0-10); URINE APPEARANCE Clear (CLEAR/HAZY); URINE BACTERIA None Seen /hpf (NONE SEEN); URINE BILIRUBIN Negative (NEGATIVE); URINE BLOOD Negative (NEGATIVE); URINE COLOR Straw (YELLOW); URINE GLUCOSE Negative (NEGATIVE); URINE KETONE Negative (NEGATIVE); URINE LEUKOCYTE ESTERASE Negative (NEGATIVE); URINE NITRATE Negative (NEGATIVE); URINE PROTEIN(semi-quant) Negative (NEGATIVE); URINE RBC 0-2 /hpf (0-2); URINE UROBILINOGEN Negative (NEGATIVE)
[2021-03-15 19:49] VITALS: BP 126/91; PULSE 92; TEMP 98.4
== END 2021-03-15 19:49 | disposition home or self-care (01) ==
LOC: COL.ER 13:16
PROVIDERS: Nurse Practitioner Family
DX: G40.909 Epilepsy, unspecified, not intractable, without status epilepticus (principal); G43.909 Migraine, unspecified, not intractable, without status migrainosus; J45.909 Unspecified asthma, uncomplicated; Z20.822 Contact with and (suspected) exposure to COVID-19; Z79.899 Other long term (current) drug therapy
CPT/HCPCS: J0595; J1200; J1885; J2550; J7030

== ENCOUNTER 2021-06-04 10:30 | Emergency (ER) | payer MEDICARE, MEDICAID ==
[~2021-06-04] VITALS: Ht 157.5 cm; Wt 64.1 kg
[2021-06-04 10:34] VITALS: TEMP 97.8
[2021-06-04] MEDS ORDERED: NORCO 325 MG-51 TAB PO (12:53)
[2021-06-04 13:29] LABS: BASO % 0.4 % (0.0-2.0); EOS # 0.1 K/mm3 (0.0-0.7); EOS % 1.6 % (0.0-4.0); GRAN # 5.4 K/mm3 (1.4-6.5); GRAN % 68.4 % (42.2-75.2); HEMATOCRIT 37.4 % (37.0-47.0); HEMOGLOBIN 12.5 g/dl (12.5-16.0); LYMPH # 1.9 K/mm3 (1.2-3.4); LYMPH % 24.1 % (20.0-51.0); MEAN CELL VOLUME 82 fl (80.0-100.0); MEAN CORPUSCULAR HEMOGLOBIN 27 pg (27-31); MEAN CORPUSCULAR HGB CONC 33 g/dl (33.0-37.0); MEAN PLATELET VOLUME 10.7 fl (7.4-10.4); MONO # 0.4 K/mm3 (0.1-0.6); MONO % 5.2 % (1.7-9.3); PLATELET COUNT 255 K/mm3 (130-400); RED BLOOD COUNT 4.57 M/mm3 (4.10-5.30); REDCELL DISTRIBUTION WIDTH-CV 14.5 % (11.5-14.5)
[2021-06-04 13:45] LABS: ALBUMIN 3.9 gm/dL (3.5-5.0); BILIRUBIN,TOTAL 0.3 mg/dL (0.2-1.2); CALCIUM 9.2 mg/dL (8.4-10.2); CREATININE, serum 0.99 mg/dL (0.57-1.11); POTASSIUM 3.9 mmol/L (3.5-4.5); TOTAL PROTEIN 7.5 gm/dL (6.2-8.1)
[2021-06-04 15:08] VITALS: BP 109/76; PULSE 96
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
== END 2021-06-04 15:10 | disposition home or self-care (01) ==
LOC: COL.ER 10:30
PROVIDERS: Personal Emergency Response Attendant
DX: S09.90XA Unspecified injury of head, initial encounter (principal); T71.9XXA Asphyxiation due to unspecified cause, initial encounter; Y04.2XXA Assault by strike against or bumped into by another person, initial encounter
CPT/HCPCS: J2270; J7030; Q9967

== ENCOUNTER 2022-05-25 13:00 | Emergency (ER) | payer MEDICAID ==
[~2022-05-25] VITALS: Ht 157.5 cm; Wt 63.6 kg
[2022-05-25 13:11] VITALS: TEMP 98.3
[2022-05-25] MEDS ORDERED: AMOXICILLIN 50500 MG PO (14:40)
[2022-05-25 15:55] VITALS: BP 109/86; PULSE 86
== END 2022-05-25 15:55 | disposition home or self-care (01) ==
LOC: COL.ER 13:00
DX: G43.909 Migraine, unspecified, not intractable, without status migrainosus (principal); J45.909 Unspecified asthma, uncomplicated; Z79.51 Long term (current) use of inhaled steroids
CPT/HCPCS: J0595; J1200; J1885; J2550; J7030

== ENCOUNTER 2022-07-07 11:42 | Emergency (ER) | payer MEDICARE, MEDICAID ==
[~2022-07-07] VITALS: Ht 157.5 cm; Wt 64.5 kg
[2022-07-07 14:07] LABS: STREP SCREEN NEGATIVE
[2022-07-07 14:20] VITALS: BP 115/83; PULSE 90; TEMP 97.7
== END 2022-07-07 14:20 | disposition home or self-care (01) ==
LOC: COL.ER 11:42
PROVIDERS: Emergency Medicine
DX: L50.9 Urticaria, unspecified (principal); J02.9 Acute pharyngitis, unspecified
CPT/HCPCS: J2550

== ENCOUNTER 2023-04-30 08:46 | Emergency (ER) | payer MEDICARE, MEDICAID ==
[~2023-04-30] VITALS: Ht 157.5 cm; Wt 72.3 kg
[2023-04-30 08:50] VITALS: BP 117/74; TEMP 98.2
[2023-04-30 09:22] VITALS: PULSE 74
== END 2023-04-30 09:20 | disposition home or self-care (01) ==
LOC: COL.ER 08:46
DX: L03.317 Cellulitis of buttock (principal); Z88.1 Allergy status to other antibiotic agents

== ENCOUNTER 2023-11-13 11:59 | Emergency (ER) | payer MEDICARE, MEDICAID ==
[~2023-11-13] VITALS: Ht 157.5 cm; Wt 66.4 kg
[2023-11-13 12:16] VITALS: TEMP 98.3
[2023-11-13] MEDS ORDERED: FLEXERIL 1010 MG/TAB PO ×2 (12:40→15:01)
[2023-11-13] MEDS ORDERED: MOTRIN 800800 MG/TAB PO ×2 (12:40→15:01)
[2023-11-13] MEDS ORDERED: Ketorolac 60 MG/2 ML VIAL IM ONE (12:45)
[2023-11-13 12:51] VITALS: BP 112/75; PULSE 80
[2023-11-13] MEDS ORDERED: NORCO 325 MG-51 TAB PO (15:01)
== END 2023-11-13 12:55 | disposition home or self-care (01) ==
LOC: COL.ER 11:59
DX: S39.012A Strain of muscle, fascia and tendon of lower back, initial encounter (principal); S16.1XXA Strain of muscle, fascia and tendon at neck level, initial encounter; V49.40XA Driver injured in collision with unspecified motor vehicles in traffic accident, initial encounter; Y92.481 Parking lot as the place of occurrence of the external cause
CPT/HCPCS: J1885

== ENCOUNTER 2023-11-30 08:24 | Emergency (ER) | payer MEDICARE, MEDICAID ==
[~2023-11-30] VITALS: Ht 157.5 cm; Wt 66.8 kg
[~2023-11-30 08:24] MED LIST changes: +FLEXERIL 1010 MG/TAB PO
[2023-11-30] MEDS ORDERED: NS 1,000 ML IV ONE (09:00)
[2023-11-30] MEDS ORDERED: Morphine 4 MG/ML VIAL IV ONE (09:00)
[2023-11-30] MEDS ORDERED: diphenhydrAMINE 50 MG/ML 1 ML VIAL IV ONE (09:00)
[2023-11-30] MEDS ORDERED: droPERidol 2.5 MG/ML 2 ML VIAL IV ONE (09:00)
[2023-11-30 09:39] LABS: BASO % 0.4 % (0.0-2.0); EOS # 0.8 K/mm3 (0.0-0.7); EOS % 15.4 % (0.0-4.0); GRAN # 1.7 K/mm3 (1.4-6.5); GRAN % 31.1 % (42.2-75.2); HEMATOCRIT 39.9 % (37.0-47.0); HEMOGLOBIN 13.5 g/dl (12.5-16.0); LYMPH # 2.6 K/mm3 (1.2-3.4); LYMPH % 47.3 % (20.0-51.0); MEAN CELL VOLUME 88 fl (80.0-100.0); MEAN CORPUSCULAR HEMOGLOBIN 30 pg (27-31); MEAN CORPUSCULAR HGB CONC 34 g/dl (33.0-37.0); MEAN PLATELET VOLUME 10.2 fl (7.4-10.4); MONO # 0.3 K/mm3 (0.1-0.6); MONO % 5.6 % (1.7-9.3); PLATELET COUNT 241 K/mm3 (130-400); RED BLOOD COUNT 4.53 M/mm3 (4.10-5.30); REDCELL DISTRIBUTION WIDTH-CV 14.3 % (11.5-14.5)
[2023-11-30 09:54] LABS: ALBUMIN 3.8 g/dL (3.5-5.0); BILIRUBIN,TOTAL 0.2 mg/dL (0.2-1.2); CALCIUM 9.2 mg/dL (8.4-10.2); CREATININE, serum 0.89 mg/dL (0.57-1.11); POTASSIUM 4.4 mEq/L (3.5-4.5); TOTAL PROTEIN 7.1 g/dl (6.2-8.1)
[2023-11-30 11:13] VITALS: BP 131/89; PULSE 80; TEMP 98.6
== END 2023-11-30 11:33 | disposition home or self-care (01) ==
LOC: COL.ER 08:24
PROVIDERS: Personal Emergency Response Attendant
DX: R51.9 Headache, unspecified (principal); R20.2 Paresthesia of skin; Z86.69 Personal history of other diseases of the nervous system and sense organs; Z79.899 Other long term (current) drug therapy
CPT/HCPCS: J1200; J1790; J2270; J7030